=== PATIENT | male | born 1955 | race Caucasian/White ===

== ENCOUNTER → 2017-10-31 | Emergency (ER) | payer OTHER ==
[~2017-10-31] VITALS: Ht 162.6 cm; Wt 78.0 kg
[~2017-10-31] MED LIST: BICARSIM FORTE125 MG PO; LEVSIN/SL0.125 MG SL; LEVSINEX0.375 M1 PO; MIRALAX510 GM PO; TAMS0.4C
== END | disposition home or self-care (01) ==
LOC: ER 00:08
DX: K59.09 Other constipation (principal); R10.84 Generalized abdominal pain